=== PATIENT | male | born 1950 | race Caucasian/White ===

== ENCOUNTER → 2017-09-09 | Outpatient (CLI) | payer MEDICARE, OTHER ==
--- NOTE | 2017-09-09 17:12 | RADIOLOGY REPORT (SQ) ---
EXAM DESCRIPTION: MRI ABDOMEN COMBO COMPLETED DATE/TIME: 09/09/2017 1:35 pm REASON FOR STUDY: K74.60 UNSPECIFIED CIRRHOSIS OF LIVER Z12.89 ENCOUNTER FOR SCREENING FOR MA K74.60 UNSPECIFIED CIRRHOSIS OF LIVER Z12.89 ENCOUNTER FOR SCREENING FOR MALIGNANT NEOPLASM OF OTH COMPARISON: None. TECHNIQUE: Multiplanar multisequence imaging performed without and with contrast including sagittal, axial and coronal T2, axial T1, axial gradient fat sat T1, axial, sagittal and coronal fat sat T1 po st contrast. CONTRAST TYPE AND DOSE: 20 mL Prohance. RENAL FUNCTION: GFR > 60. LIMITATIONS: None. FINDINGS: LIVER: Liver is small, without nodules masses or abnormal contrast enhancement. There is contrast enhancement of the inferior vena cava, hepatic veins, and portal vein. There is re canalization of the umbilical vein. SPLEEN: Splenomegaly, 20 cm in greatest length PANCREAS: No masses. No adjacent inflammation or peripancreatic fluid collections. Pancreatic duct no t dilated. GALLBLADDER: Not identified ADRENAL GLANDS: No significant masses or asymmetry. RIGHT KIDNEY AND URETER: No masses. No hydronephrosis. LEFT KIDNEY AND URETER: No masses. No hydronephrosis. AORTA AND VESSELS: No aneurysm. No dissection. Renal arteries, SMA, celiac without stenosis. RETROPERITONEUM: No retroperitoneal adenopathy, hemorrhage or masses. BOWEL: Not well seen ABDOMINAL WALL AND PERITONEUM: Small amount of ascites BONES: No acute or significant findings. OTHER: There are few varices along the GE junction and stomach fundus IMPRESSION: Cirrhosis with evidence of portal hypertension as above. No worrisome liver masses or e nhancement. TECHNICAL DOCUMENTATION: JOB ID: [id number] [employer]- All Rights Reserved Reading location - IP/workstation name: [email or web address]
== END ==
LOC: RAD 12:35
PROVIDERS: ATTEND Internal Medicine Gastroenterology
DX: K74.60 Unspecified cirrhosis of liver (principal); K74.69 Other cirrhosis of liver; K76.6 Portal hypertension; Z12.89 Encounter for screening for malignant neoplasm of other sites
CPT/HCPCS: 82565; 74183; A9576